=== PATIENT | female | born 1950 | race Caucasian/White ===

== ENCOUNTER → 2017-03-06 | Outpatient (CLI) | payer OTHER ==
[~2017-03-06] MED LIST: ADVAIR 2501 DISK W/D; ALBUTEROL17 GM; CALCIUM 500 + D1 TAB; INDOCIN SR75 MG; MULTI-VIT/MIN P1 TAB; NAPROXEN500 M1 PO; NEXIUM PO; POTASSIUM; TRAZODONE; TRIAMTERENE; VICODIN 5/500 T1 TAB
--- NOTE | ~2017-03-06 | MY11 ---
[facility] A Service of [facility] RADIOLOGY TEXT RESULTS PATIENT: OXANA MEDRANO LOCATION: [facility] : 54 UNIT #: [id number] AGE: [address]: Elza Tavares MD SEX: F ORDER DR: [id number] [facility] [address] [place], [place] [address] [id number] O MR#: [id number] #: [id number] NAME: OXANA MEDRANO : 1950 SEX: F STUDY DATE/TIME: 03/06/2017 15:45 UNIT: [facility] ROOM: STUDY DESCRIPTION: MY Mammogram Screening Dig Spenser Attending Physician: Elza Tavares M.D. Ordering Physician: Elza Tavares M.D. Primary Care Physician: Elza Tavares M.D. MEDICAL IMAGING REPORT This report is preliminary unless electronic signature is present EXAM Bilateral digital screening mammogram with CAD DATE OF EXAMINATION 03/06/2017 HISTORY Benign left breast aspiration approximately 8 years ago. Family history of breast cancer in her mother at age of 60. No personal history breast cancer or current complaints. COMPARISON Bilateral screening mammogram 02/07/2016, 10/13/2014 FINDINGS CC and MLO views were obtained of each breast utilizing digital technique and reviewed with an FDA-approved CAD device. Scattered fibroglandular densities are present bilaterally. There is overall fibronodular pattern within each breast. Benign appearing nodularity bilaterally appears unchanged. What appear to be benign appearing intramammary lymph nodes in the upper outer quadrants, unchanged. No suspicious cluster of microcalcification or architectural distortion features. IMPRESSION BIRADS 2. Benign findings. Routine bilateral screening mammogram is recommended in 1 year. Patients over the age of 40 are entered into a reminder system with target due date for the next mammogram. A result letter will also be sent to the patient. [facility] A Service of [facility] RADIOLOGY TEXT RESULTS PATIENT: OXANA MEDRANO LOCATION: [facility] : 54 UNIT #: [id number] AGE: [address]: Elza Tavares MD SEX: F ORDER DR: [place]: 2 - Benign finding Dictated by... Laura Rich M.D. THIS IS AN ELECTRONICALLY VERIFIED REPORT Laura Rich M.D. at 03/07/2017 7:04 AM GABRIELA/brittaney TD: 03/06/2017 18:21 JOB #: [id number] MEDICAL IMAGING REPORT Page 1 of 1 COPY
== END | disposition home or self-care (01) ==
LOC: CWCC 15:26
DX: Z12.31 Encounter for screening mammogram for malignant neoplasm of breast (principal); Z80.3 Family history of malignant neoplasm of breast
CPT/HCPCS: G0202

== ENCOUNTER → 2017-08-13 | Outpatient (CLI) | payer OTHER ==
--- NOTE | ~2017-08-13 | BD1 ---
[facility] A Service of [facility] & [facility] RADIOLOGY TEXT RESULTS PATIENT: OXANA MEDRANO LOCATION: [facility] : 54 UNIT #: [id number] AGE: [address]: Elza Tavares MD SEX: F ORDER DR: [id number] [facility] [address]. [place], [place] [address] [id number] O MR#: [id number] Acc #: [id number] NAME: OXANA MEDRANO : 1950 SEX: F STUDY DATE/TIME: 08/13/2017 11:44 UNIT: [facility] ROOM: STUDY DESCRIPTION: BD Dexa Bone Dens 1+ Site Attending Physician: Elza Tavares M.D. Ordering Physician: Elza Tavares M.D. Primary Care Physician: Elza Tavares M.D. MEDICAL IMAGING REPORT This report is preliminary unless electronic signature is present EXAM DXA scan HISTORY Postmenopausal screening for osteoporosis. TECHNIQUE Bone density was assessed utilizing a Hologic bone densitometer. FINDINGS Bone density in the left femoral neck was calculated at 0.734 g/cm2, with a T-score of -1. Total bone dense in the lumbar spine was calculated at 1.135 g/cm2, with a T-score of 0.8. IMPRESSION Bone density within the proximal left femur and lumbar spine is within 1 standard deviation of the mean and, therefore, normal. Dictated by... Breezy Ambrocio M.D. THIS IS AN ELECTRONICALLY VERIFIED REPORT Breezy Ambrocio M.D. at 08/14/2017 4:46 PM Quinten TD: 08/13/2017 17:34 JOB #: [id number] MEDICAL IMAGING REPORT Page 1 of 1 COPY
== END | disposition home or self-care (01) ==
LOC: CWCC 11:21
DX: Z13.820 Encounter for screening for osteoporosis (principal); Z78.0 Asymptomatic menopausal state
CPT/HCPCS: 77080